=== PATIENT | female | born 1945 ===

== ENCOUNTER 2022-04-11 06:00 | Outpatient (RCR) | payer MEDICARE, MEDICAID, SELFPAY | END 2022-04-12 23:59 | disposition home or self-care (01) | LOC: MPT 06:00 | PROVIDERS: Visit Provider Family Medicine | DX: M25.552 Pain in left hip (principal); G89.29 Other chronic pain | CPT/HCPCS: 97110; 97162 ==

== ENCOUNTER 2022-04-13 06:00 | Outpatient (RCR) | payer MEDICARE, MEDICAID, SELFPAY | END 2022-05-13 23:59 | disposition home or self-care (01) | LOC: MPT 06:00 | PROVIDERS: Visit Provider Family Medicine | DX: M25.552 Pain in left hip (principal); G89.29 Other chronic pain | CPT/HCPCS: 97110; 97140 ==

== ENCOUNTER 2025-05-13 10:35 | Emergency (ER) | payer MEDICARE, MEDICAID, SELFPAY ==
[2025-05-13 10:54] VITALS: BP 164/97; PULSE 74; RESP 18; TEMP 36.7; O2SAT 100; BMI 25.4
--- NOTE | 2025-05-13 11:01 | XRR_ITS ---
PROCEDURE INFORMATION: Exam: XR Left Hip Exam date and time: 05/13/2025 11:03 AM Age: 79 years old Clinical indication: Injury or trauma; Fall; Blunt trauma (contusions or hematomas); Prior surgery; Surgery date: 6+ months; Surgery type: Back, left hip; Additional info: Pain TECHNIQUE: Imaging protocol: Radiologic exam of the left hip. Views: 2 or 3 views hip with pelvis when performed. COMPARISON: No relevant prior studies available. FINDINGS: Bones/joints: Total hip replacement. Anatomic alignment. Bone and metal artifact. No acute fracture. Soft tissues: Unremarkable. XR/XR hip LT 2-3V wo/w pel* [id number] IMPRESSION: Normal following replacement.
--- NOTE | 2025-05-13 11:02 | W.ED.BACK ---
HPI - Back Pain/Injury General: Chief Complaint: Back Pain/Injury Stated Complaint: fell left side hip pain Time Seen by Provider: 05/13/25 11:01 History of Present Illness: 79-year-old female presents emergency room complaining of low back pain particularly on the left side and left hip. She slipped and fell landed on her left side of in the yard around 730 this morning family helped her get up she had difficult time ambulating without assistance. Previous left hip arthroplasty. Patient reports having had back and neck surgery in the past as well. She is unsure if she has had any vertebroplasty or vertebral compression fractures Associated symptoms: Deny abdominal pain, chills, dysuria, fever(s) or urinary urgency Related Data Previous Rx's ?Medication ?Instructions ?Recorded diclofenac sodium 75 mg 75 mg PO Q12H PRN pain #20 tabs 05/13/25 tablet,delayed release Allergies Allergy/AdvReac Type Severity Reaction Status Date / Time alcohol Allergy ALGY-Rash Verified 05/13/25 10:58 lifitegrast (From [place]) Allergy ALGY-Hives Verified 05/13/25 11:37 Review of Systems Const: Denies: fever(s) or chills Card: Denies: chest pain Resp: Denies: dyspnea GI: Denies: abdominal pain : Denies: dysuria, urinary frequency or urinary urgency Musc: Reports: back pain and joint pain (Left hip); Denies: neck pain Skin/Breast: Denies: rash PFSH ED PFSH: Surgical History (Updated 05/13/25 @ 11:19 by Navi Sevilla DO) History of arthroplasty of left hip Physical Exam Const: GENERAL APPEARANCE: cooperative ORIENTATION/CONSCIOUSNESS: Yes awake, Yes oriented to person, Yes oriented to place and Yes oriented to time HENMT: COMMON NORMALS: normocephalic, atraumatic and hearing grossly normal bilaterally HEAD & SCALP: normocephalic and atraumatic Resp: COMMON NORMALS: normal respiratory effort, No retractions, No use of accessory muscles and clear to auscultation bilaterally AUSCULTATION: clear to auscultation bilaterally Cardio: COMMON NORMALS: regular rate, regular rhythm and No murmurs present (Cardio) RATE: regular rate RHYTHM: regular rhythm GI: COMMON NORMALS: Soft to palpation and No hepatosplenomegaly present AUSCULTATION: Yes normoactive bowel sounds PALPATION: Yes Soft to palpation, No Tenderness to palpation present (GI), No Guarding due to palpation present (GI) and Yes No hepatosplenomegaly present Extremity: COMMON NORMALS: normal to inspection, capillary refill normal, no clubbing, cyanosis or edema, no calf tenderness and no pedal edema Neuro: SENSORIUM/ORIENTATION: Yes oriented to person, Yes oriented to place and Yes oriented to time Skin: COMMON NORMALS: no rashes or lesions noted GENERAL SKIN EXAM: no rashes or lesions noted Course Vital Signs: Vital signs: Vital Signs Temperature 98 F 05/13/25 12:41 Pulse Rate 75 05/13/25 12:41 Respiratory Rate 14 05/13/25 12:41 Blood Pressure 175/87 05/13/25 12:41 Pulse Oximetry 96 05/13/25 12:41 Oxygen Delivery Me thod Room Air 05/13/25 11:55 MDM - Back Pain/Injury Medical Decision Making 79-year-old female with a history of previous back surgery hip arthroplasty complaining of back pain after a fall. CT of the lumbar spine does not show any new compression fractures or abnormality of previous hardware x-ray of the left hip and pelvis do not show any fractures hardware in good condition. X-rays reviewed by myself. Patient was able to ambulate with the assistance of a cane which she does occasionally use at home. Discharge patient home diclofenac to use as needed follow-up as needed Medical Records I reviewed the patient's medical records. Labs Radiology Impressions Hip/Pelvis X-Ray 05/13/25 11:01 IMPRESSION: Normal following replacement. Lumbar Spine CT 05/13/25 11:03 IMPRESSION: 1. Pedicle screw fixation L4-5 with interbody fusion graft. 2. No acute compression fractures. 3. Osteopenia. 4. Moderate to severe central canal stenosis L3-L4. 5. Mild central canal stenosis L2-3 with narrowing of the LEFT subarticular recess. All radiology interpretation(s) finalized by discharge Discharge Plan Discharge Patient Disposition: Home Clinical Impression: Strain of lumbar region, Fall Condition: Stable Prescriptions: New diclofenac sodium 75 mg tablet,delayed release (DR/EC) 75 mg PO Q12H PRN (Reason: pain) Qty: 20 0RF Discharge Orders: Discharge ED (Routine); Ordered 12/31/25 Ordered By: Navi Sevilla Discharge Diet: Usual diet Discharge Activity: Resume usual activity Patient Instructions: Opioid Safety, Pain Management, Patient Portal & Ana Instructions Activity Restrictions/Additional Instructions: Thank you [facility] your healthcare needs today. It is very important that you follow up as instructed or that you return to the Emergency Department should you have concerns or if your condition changes or worsens in any way. Emergency department visits are focused on emergent conditions, in some cases you may require further evaluation on an outpatient basis. You were seen in the emergency room with back pain after a fall. CT of your lumbar spine did not show any acute abnormalities. Previous surgical hardware is in good position there is no fractures. X-ray of your hip also did not show any fractures. You will likely be very sore for the next several days due to the fall you can use diclofenac as needed. (Please note that included in your discharge packet is information concerning opioid safety and pain management. This information is given to all patients were discharged from the ER regardless of their discharge diagnosis or the medicines they usually take or are prescribed.) Print Language: American Coding Level of Care Code ED Legal Document Assistant for Precious Cruz
--- NOTE | 2025-05-13 11:03 | CT_ITS ---
WS: [id number] CT LUMBAR SPINE TECHNIQUE: Noncontrast CT of the lumbar spine with coronal and sagittal reformatted images. CLINICAL INFORMATION: Fall low back pain COMPARISON: None. DLP: 460.[address] scans at [facility] use at least one of these dose optimization techniques: automated exposure control; mA and/or kV adjustment per patient size (includes targeted exams where dose is matched to clinical indication); or iterative reconstruction. FINDINGS: Osteopenia. Mild lumbar curve. Grade 1 anterolisthesis L3 on L4 L4 and L5 and L5 on S1. Pedicle screw fixation L4-5 with interbody fusion graft. Interconnecting rods appear intact. No acute appearing compression fractures. Subsegmental atelectasis in the lung bases. Cholecystectomy clips. Pneumobilia. Sigmoid diverticulosis. RIGHT adrenal adenoma measuring 3.1 cm. Hepatomegaly. L1-L2: Mild annular bulging. Slight effacement of ventral thecal sac. Mild facet arthropathy. Foramen are patent. L2-L3: Mild annular bulging. Mild central canal stenosis. Narrowing of the LEFT subarticular recess. Moderate facet arthropathy. Mild LEFT greater than RIGHT foraminal narrowing. L3-L4: Mild disc bulging with moderate facet arthropathy. Mild bilateral foraminal narrowing. Moderate to severe central canal stenosis. Moderate facet arthropathy with ligamentum flavum hypertrophy. L4-L5: Interbody fusion. Spinal canal and foramen are patent. RIGHT kusum laminectomy. L5-S1: Mild disc bulging. Slight contact of the LEFT greater than RIGHT S1 nerve roots. Moderate facet arthropathy. Moderate LEFT foraminal narrowing. Visualized pelvic bony structures: Normal. Paravertebral soft tissues: Normal. CT/CT lumbar spine wo con* [id number] IMPRESSION: 1. Pedicle screw fixation L4-5 with interbody fusion graft. 2. No acute compression fractures. 3. Osteopenia. 4. Moderate to severe central canal stenosis L3-L4. 5. Mild central canal stenosis L2-3 with narrowing of the LEFT subarticular re cess.
--- NOTE | 2025-05-13 11:39 | PC.NURSE ---
pt has additonal allergies propofol, robinul, carafate, dicyclomine, peanuts
[2025-05-13] MEDS: HYDROcodone-acetaminophen 5-325 mg Tablet 1 TAB PO (11:40)
[2025-05-13 11:55] VITALS: BP 187/80; PULSE 75; RESP 16; O2SAT 96
--- NOTE | 2025-05-13 12:21 | PC.NURSE ---
patient able to ambulate using a cane from home independently out of room to the exit doors without incident, pt still in pain but also got herself back onto stretcher independently.
[2025-05-13 12:41] VITALS: BP 175/87; PULSE 75; RESP 14; TEMP 36.6; O2SAT 96
== END 2025-05-13 12:48 | disposition home or self-care (01) ==
PROVIDERS: Emergency Provider Family Medicine
DX: S39.012A Strain of muscle, fascia and tendon of lower back, initial encounter (principal); W01.0XXA Fall on same level from slipping, tripping and stumbling without subsequent striking against object, initial encounter; Z96.642 Presence of left artificial hip joint
CPT/HCPCS: 72131; 73502; 96372; 99284; J1885; J9999